=== PATIENT | female | born 1960 | race Caucasian/White ===

== ENCOUNTER → 2020-01-11 18:04 | Outpatient (CLI) | payer BC, SELFPAY ==
--- NOTE | ~2020-01-11 | MM_ITS ---
EXAMINATION: MM screening sabrina BI w linda HISTORY: Screening TECHNIQUE: Craniocaudal and mediolateral oblique 3-D tomosynthesis images were obtained and synthetic 2-D images were generated. CAD analysis was submitted and interpreted. COMPARISON: Comparison to multiple prior studies sequentially, with oldest reviewed study dated 09/21. BREAST PARENCHYMAL COMPOSITION: Breast composed of scattered areas of fibroglandular density. FINDINGS: There is no evidence of suspicious mass, calcification, or architectural distortion to sugg est malignancy in either breast. There has been no suspicious interval change. IMPRESSION: 1. No mammographic evidence of malignancy. 2. Recommend routine screening mammography in one year. BI-RADS Category 1: Negative Reviewed, dictated and finalized at location B. OS ANALYST
== END ==
PROVIDERS: Visit Provider Nurse Practitioner Family
DX: Z12.31 Encounter for screening mammogram for malignant neoplasm of breast (principal)
CPT/HCPCS: 77063; 77067

== ENCOUNTER 2020-12-04 00:40 | Day surgery (SDC) | payer OTHER, SELFPAY ==
[2020-11-15 14:09] VITALS: BMI 22.8
--- NOTE | 2020-12-03 10:34 | WPDANESEPPF ---
Anes - Initial Pre Proc Eval Procedure: Operation Date: 12/04/20 09:45 Proposed Procedures p Screening Colonoscopy - Andrea Alcala MD Date/Time: 12/03/20 10:34 Surgeon: Andrea Alcala MD Pre Op Diagnosis: neoplasm screening Patient Data Age: 60 Gender: F Height: 1.73 m Weight: 68.1 kg Allergies Allergy/AdvReac Type Severity Reaction Status Date / Time acetaminophen [From Vicodin] AdvReac Nausea and Verified 12/04/20 08:33 Vomiting hydrocodone [From Vicodin] AdvReac Nausea and Verified 12/04/20 08:33 Vomiting Home Medications Medication Instructions Recorded Confirmed Type lovastatin 20 mg PO DAILY 11/15/20 11/15/20 History Patient hx anesthesia problems: none Family hx anesthesia problems: none Results Review: All pre-operative results and documents have been reviewed as part of the pre-operative evaluation. [facility] Past Medical History Medical History (Updated 12/04/20 @ 09:10 by Tristen Rjaan DO) Hyperlipidemia Surgical History Surgical History (Updated 12/03/20 @ 10:34 by Tristen Rajan DO) History of appendectomy Social History Social History Smoking status: Former smoker Tobacco type: cigarettes Substance use type: does not use Living arrangements: with family Anes - Eval Final PreProcedure Day of Procedure 12/03/20 10:34 Patient weight: normal Heart: regular rate and rhythm Lungs: clear to auscultation and normal air movement Airway: Mallampati scale class II Neurological: alert and oriented Last oral intake: >/= 8 hours ASA classification: II Emergent: no Anesthetic plan: proceed Anesthesia type and monitoring: general GIVS and standard monitoring Results Review: All pre-operative results and documents have been reviewed as part of the pre-operative evaluation. Informed Consent: The patient's anesthetic plan and its attendant risks and benefits were discussed with the patient/family/POA. Questions were solicited and answers provided to the satisfaction of the patient/family/POA.
[2020-12-04 08:34] VITALS: BP 147/96; PULSE 76; RESP 20; TEMP 36.3; O2SAT 100; BMI 24.5
[2020-12-04] MEDS: LACTATED RINGERS 1,000 ML 150 ML IV CONT (08:48)
--- NOTE | 2020-12-04 09:03 | P.CONGI_ITS ---
Assessment and Plan Assessment and plan (1) Encounter for screening colonoscopy: Code(s): Z12.11 - Encounter for screening for malignant neoplasm of colon Status: Acute Assessment and Plan: Patient presents for neoplasia screening colonoscopy because of her age. Further recommendations will be given after endoscopy. GI Consult Note Consult date/time: 12/04/20 09:03 HPI: Arnel Hoyt is a 60 year old female Presents for screening colonoscopy. Patient's current weight appetite bowel movements are normal. Patient denies abdominal pain. She has had no bleeding. Family history is noncontributory. There are no first-degree relatives with colon cancer. Her adopted brother did have colon cancer. Patient reports her last colonoscopy was 10 years ago. Review of Systems Review of Systems: All systems reviewed & are unremarkable except as noted in HPI and below PMFSH Past Medical History Medical History (Updated 12/04/20 @ 09:04 by Andrea Alcala MD) Hyperlipidemia Hypertension Surgical History Surgical History (Updated 12/03/20 @ 10:34 by Tristen Rajan DO) History of appendectomy Social History Social History Smoking status: Former smoker Tobacco type: cigarettes Substance use type: does not use Living arrangements: with family Meds Home Medications and Allergies Home Medications Medication Instructions Recorded Confirmed Type lovastatin 20 mg PO DAILY 11/15/20 11/15/20 History Allergies Allergy/AdvReac Type Severity Reaction Status Date / Time acetaminophen [From Vicodin] AdvReac Nausea and Verified 12/04/20 08:33 Vomiting hydrocodone [From Vicodin] AdvReac Nausea and Verified 12/04/20 08:33 Vomiting Vital Signs Vital Signs - 24 hr 12/04/20 08:34 Temperature 97.3 F L Pulse Rate 76 Respiratory Rate 20 Blood Pressure 147/96 H Pulse Oximetry 100 Exam Narrative: Physical exam reveals patient to be alert. Vital signs stable. HEENT exam is unremarkable. Patient is anicteric. Lungs are clear to auscu ltation and percussion. Heart is without murmur or extra sounds. Abdominal exam bowel sounds are present soft nontender with no organomegaly. Digital external rectal exam is normal.
[2020-12-04 10:18] VITALS: BP 129/106; PULSE 77; RESP 24; O2SAT 100
[2020-12-04 10:28] VITALS: BP 139/96; PULSE 88; RESP 21; O2SAT 100
[2020-12-04 10:38] VITALS: BP 148/86; PULSE 74; RESP 19; O2SAT 100
== END 2020-12-04 10:51 | disposition home or self-care (01) ==
PROVIDERS: PCP Nurse Practitioner Family; Visit Provider Internal Medicine Gastroenterology
PROC: 0DJD8ZZ Inspection of Lower Intestinal Tract, Via Natural or Artificial Opening Endoscopic (ICD-10-PCS; CPT 45378; principal; 2020-12-04 09:45)
DX: Z12.11 Encounter for screening for malignant neoplasm of colon (principal); K64.8 Other hemorrhoids; E78.5 Hyperlipidemia, unspecified; I10 Essential (primary) hypertension; Z87.891 Personal history of nicotine dependence
CPT/HCPCS: 45378; J2704; J7120

== ENCOUNTER → 2021-04-03 11:15 | Outpatient (CLI) | payer OTHER, SELFPAY ==
--- NOTE | ~2021-04-03 | DEXA_ITS ---
Bone Density Report Name: MADHAV VALLE Age: 60 Sex: Female Ethnicity: White Date of : 1960 Indication: postmenopausal; screening for osteoporosis; Referring Provider: LORE WILDER Study: Bone densitometry was performed. Exam Date: April 03, 2021 Accession number: [id number] Bone Density: Region BMD T-score Z-score Classification AP Spine (L1, L4) 0.903 -1.2 0.2 Osteopenia Femoral Neck (Left) 0.727 -1.1 0.2 Osteopenia Total Hip (Left) 0.852 -0.7 0.2 Normal Femoral Neck (Right) 0.834 -0.1 1.2 Normal Total Hip (Right) 0.929 -0.1 0.9 Normal Total Hip Mean 0.891 -0.4 0.6 Normal World Health Organization criteria for BMD impression classify patients as: Normal (T-score at or above -1.0), Osteopenia (T-score between -1.0 and -2.5), or Osteoporosis (T-score at or below -2.5). 10-year Fracture Risk(1): Major Osteoporotic Fracture 7.4% Hip Fracture 0.5% Reported Risk Factors: [place] (), Neck BMD=0.727, BMI=26.4 (1) FRAX(R) Version 3.08. Fracture probability calculated for an untreated patient. Fracture probability may be lower if the patient has received treatment. Previous Exams: Region Exam Age BMD T-score BMD Change BMD Change Date g/cm2 vs Baseline vs Previous AP Spine(L1, L4) 04/03/2021 60 0.903 -1.2 -0.033* -0.033* 10/08/2017 57 0.936 -0.9 Total Hip(Left) 04/03/2021 60 0.852 -0.7 0.001 0.001 10/08/2017 57 0.851 -0.7 Total Hip(Right) 04/03/2021 60 0.929 -0.1 -0.018 -0.018 10/08/2017 57 0.948 0.0 *Denotes significance at 95% confidence level, LSC for AP Spine = 0.022 g/cm2, LSC for Total Hip = 0.027 g/cm2 Clinical Information Provided by Patient: Has used the following medications: Vitamin D, Calcium Patient maximum height was 67 Menopause Age: 52 Does not regularly consume dairy products Onset of menses at age 12 Number of children 0 Impression: The patient has low bone mass, based on the Total Spine T-score. The patient has an estimated ten-year risk of hip fracture of 0.5% and an estimated ten-year risk of major fracture of 7.4%, based on the WHO FRAX algorithm. The BMD for the AP Spine(L1, L4) decreased, changing by -0.033 since the last DXA exam. Discussion: BONE DENSITY IS LOW AT ONE OR MORE SKELETAL SITES. This patient's lowest T-score is low at one or more skeletal sites. It meets the World Health Organization's (WHO) crite
--- NOTE | ~2021-04-03 | MM_ITS ---
EXAMINATION: MM screening sabrina BI w linda HISTORY: Screening mammogram TECHNIQUE: Craniocaudal and mediolateral oblique 3-D tomosynthesis images were obtained and synthetic 2-D images were generated. CAD analysis was submitted and interpreted. COMPARISON: 01/28/2020, 12/15/2018, 10/08/2017 bilateral screening mammogram examinations BREAST PARENCHYMAL COMPOSITION: There are scattered areas of fibroglandular density. FINDINGS: There is a very suspicious asymmetric mass density measuring up to 11 mm in the posterior u pper outer left breast; diagnostic left mammogram and left breast ultrasound examination are recommen ded. No suspicious mass, architectural distortion, malignant calcification, skin thickening or retraction of either breast is noted otherwise. IMPRESSION: 1. At least 11 mm suspicious new mass in the posterior upper outer left breast 2. Diagnostic left mammogram and left breast ultrasound examination are recommended. BI-RADS Category 0: Incomplete: Needs additional imaging evaluation. Reviewed, dictated and finalized at location A. ATOLOGY TEACHER IMPRESSION: 1. At least 11 mm suspicious new mass in the posterior upper outer left breast 2. Diagnostic left mammogram and left breast ultrasound examination are recomme nded. BI-RADS Category 0: Incomplete: Needs additional imaging evaluation.
== END ==
PROVIDERS: PCP Nurse Practitioner Family; Visit Provider Obstetrics & Gynecology
DX: Z12.31 Encounter for screening mammogram for malignant neoplasm of breast (principal); Z78.0 Asymptomatic menopausal state; R92.8 Other abnormal and inconclusive findings on diagnostic imaging of breast; M85.89 Other specified disorders of bone density and structure, multiple sites
CPT/HCPCS: 77063; 77067; 77080

== ENCOUNTER → 2021-04-16 08:54 | Outpatient (CLI) | payer OTHER, SELFPAY ==
--- NOTE | ~2021-04-16 | MMUS_ITS ---
EXAMINATION: MM diagnostic sabrina LT w linda, US breast LT limited HISTORY: Follow-up left breast mass TECHNIQUE: Additional 3-D tomosynthesis images of the left breast were performed and synthetic 2-D im ages were generated. CAD analysis was submitted and interpreted. High resolution Limited left breast ultrasound was performed. COMPARISON: 2 views Comparison to multiple prior studies sequentially, with oldest reviewed study wilma ed 09/21/2013. BREAST PARENCHYMAL COMPOSITION: Breast composed of scattered areas of fibroglandular density FINDINGS: MAMMOGRAPHIC FINDINGS: There is an irregular shaped mass in the upper outer quadrant of the left breast, middle third. There are no suspicious calcifications. ULTRASOUND: Limited left breast ultrasound: At 2:00, 8.5-9 cm from the nipple there is one or 2 adjacent irregula r shaped hypoechoic masses with posterior shadowing, largest dominant mass measuring 1.5 cm. IMPRESSION: 1. Abnormal irregular shaped hypoechoic mass/es at the 2:00 position, 8.5-9 cm from the nipple. 2. Ultrasound-guided biopsy of dominant left breast mass recommended. BI-RADS category 4, suspicious findings. Reviewed, dictated and finalized at location A. E FEEDER IMPRESSION: 1. Abnormal irregular shaped hypoechoic mass/es at the 2:00 position, 8.5-9 cm from the nipple. 2. Ultrasound-guided biopsy of dominant left breast mass recommended. BI-RADS category 4, suspicious findings.
== END ==
PROVIDERS: Visit Provider Student in an Organized Health Care Education/Training Program
DX: R92.8 Other abnormal and inconclusive findings on diagnostic imaging of breast (principal)
CPT/HCPCS: 76642; 77061; 77065; G0279

== ENCOUNTER 2021-12-25 09:14 | Outpatient (CLI) | payer OTHER, SELFPAY ==
[2021-12-25 19:33] LABS: Basophils Absolute Auto 0.1 K/mm3 (0.0-0.1); Basophils Percent Auto 1.7 % (0.2-1.2); Eosinophils Absolute Auto 0.2 K/mm3 (0-0.3); Eosinophils Percent Auto 2.8 % (0-4.4); Hematocrit 41.7 % (37.0-47.0); Hemoglobin 13.7 g/dL (12.0-15.0); Immature Granulocyte Absolute 0.01 K/mm3 (0.00-0.031); Immature Granulocyte Percent A 0.2 % (0-0.5); Lymphocytes Absolute Auto 1.39 K/mm3 (0.9-3.2); Lymphocytes Percent Auto 21.8 % (18.3-44.2); Mean Corpuscular HGB Conc 32.9 g/dl (32-36); Mean Corpuscular Volume 100.5 fl (80-100); Mean Platelet Volume 10.6 fl (7.4-10.4); Monocytes Absolute Auto 0.8 K/mm3 (0.1-0.6); Monocytes Percent Auto 12.4 % (2.6-8.5); Neutrophils Absolute Auto 3.9 K/mm3 (1.3-6.7); Neutrophils Percent Auto 61.1 % (45.5-73.1); Platelet Count Result 226 k/mm3 (150-375); Red Blood Count 4.15 M/mm3 (4.2-5.4); Red Cell Distribution Width 13.3 % (11.5-14.5); White Blood Count 6.4 K/mm3 (4.5-10.0)
[2021-12-25 19:36] LABS: Alanine Aminotransferase 53 U/L (6-35); Albumin Level 4.5 g/dL (3.5-5.1); Alkaline Phosphatase 99 U/L (38-126); Anion Gap 13 mmol/L (8-16); Aspartate Amino Transferase 61 U/L (14-36); Bilirubin,Total 0.5 mg/dL (0.2-1.3); Blood Urea Nitrogen 15 mg/dL (7-17); CRP 0.8 mg/dL (<1.0); Calcium 9.5 mg/dL (8.4-10.2); Carbon Dioxide 29 mmol/L (22-30); Chloride 100 mmol/L (98-107); Cholesterol 219 mg/dL (0-200); Estimated Glomerular Filt Rate > 60; Glucose 95 mg/dL (65-110); HDL Direct 68 mg/dL; Potassium 4.5 mmol/L (3.4-5.0); Sodium 142 mmol/L (137-145); Triglycerides 132 mg/dL (<150)
[2021-12-25 19:45] LABS: LDL Cholesterol Direct 100 mg/dL
[2021-12-25 19:49] LABS: Rheumatoid Factor < 12.0 IU/ML (<12)
[2021-12-25 20:09] LABS: Vitamin D 25 Hydroxy 75.7 ng/mL
[2021-12-25 20:28] LABS: Erythrocyte Sedimentation Rate 19 mm/hr (0-20)
== END 2021-12-25 09:15 | disposition home or self-care (01) ==
LOC: ANHGOSHLAB 09:16
PROVIDERS: PCP Family Medicine; Visit Provider Nurse Practitioner Family
DX: E55.9 Vitamin D deficiency, unspecified (principal); M79.672 Pain in left foot; M79.671 Pain in right foot; E78.5 Hyperlipidemia, unspecified; I10 Essential (primary) hypertension
CPT/HCPCS: 36415; 80053; 80061; 82306; 85025; 85652; 86140; 86430

== ENCOUNTER 2022-09-17 14:15 | Outpatient (CLI) | payer OTHER, SELFPAY ==
[2022-09-17 15:51] LABS: Basophils Absolute Auto 0.1 K/mm3 (0.0-0.1); Basophils Percent Auto 1.3 % (0.2-1.2); Eosinophils Absolute Auto 0.2 K/mm3 (0-0.3); Eosinophils Percent Auto 2.3 % (0-4.4); Hemoglobin 13.4 g/dL (12.0-15.0); Immature Granulocyte Absolute 0.01 K/mm3 (0.00-0.031); Immature Granulocyte Percent A 0.1 % (0-0.5); Lymphocytes Absolute Auto 1.46 K/mm3 (0.9-3.2); Lymphocytes Percent Auto 21.3 % (18.3-44.2); Mean Corpuscular HGB Conc 33.5 g/dl (32-36); Mean Corpuscular Hemoglobin 32.5 pg (26-34); Mean Corpuscular Volume 97.1 fl (80-100); Mean Platelet Volume 10.5 fl (7.4-10.4); Monocytes Absolute Auto 0.7 K/mm3 (0.1-0.6); Monocytes Percent Auto 9.8 % (2.6-8.5); Neutrophils Absolute Auto 4.5 K/mm3 (1.3-6.7); Neutrophils Percent Auto 65.2 % (45.5-73.1); Platelet Count Result 173 k/mm3 (150-375); Red Blood Count 4.12 M/mm3 (4.2-5.4); Red Cell Distribution Width 12.4 % (11.5-14.5); White Blood Count 6.9 K/mm3 (4.5-10.0)
[2022-09-17 16:30] LABS: Erythrocyte Sedimentation Rate 14 mm/hr (0-20)
[2022-09-17 16:32] LABS: Alanine Aminotransferase 66 U/L (6-35); Albumin Level 4.5 g/dL (3.5-5.1); Alkaline Phosphatase 90 U/L (38-126); Anion Gap 6 mmol/L (8-16); Aspartate Amino Transferase 89 U/L (14-36); Bilirubin,Total 0.6 mg/dL (0.2-1.3); Blood Urea Nitrogen 17 mg/dL (7-17); Calcium 10.4 mg/dL (8.4-10.2); Carbon Dioxide 30 mmol/L (22-30); Chloride 100 mmol/L (98-107); Estimated Glomerular Filt Rate > 60; Glucose 98 mg/dL (65-110); Sodium 136 mmol/L (137-145)
== END 2022-09-17 14:16 | disposition home or self-care (01) ==
LOC: ANHGOSHLAB 14:16
PROVIDERS: PCP Family Medicine; Visit Provider Nurse Practitioner Family
DX: I10 Essential (primary) hypertension (principal); M79.89 Other specified soft tissue disorders
CPT/HCPCS: 36415; 80053; 85025; 85652

== ENCOUNTER 2022-09-22 09:44 | Outpatient (CLI) | payer OTHER, SELFPAY ==
[2022-09-22 19:45] LABS: Uric Acid 5.3 mg/dL (2.5-7.5)
== END 2022-09-22 09:45 | disposition home or self-care (01) ==
PROVIDERS: PCP Family Medicine; Visit Provider Nurse Practitioner Family
DX: M79.89 Other specified soft tissue disorders (principal)
CPT/HCPCS: 36415; 84550

== ENCOUNTER 2023-08-13 07:51 | Outpatient (CLI) | payer OTHER, SELFPAY ==
--- NOTE | ~2023-08-13 | DEXA_ITS ---
? Bone Density Report? Name:? MADHAV VALLE Patient ID:??? [id number] Age:? 63 Sex:? Female Ethnicity:? White Date of : 1960 Indication: postmenopausal; screening for osteoporosis; height loss; cancer; Referring Provider: EDDIE VASQUEZ Study: Bone densitometry was performed. Exam Date: August 13, 2023 Accession number: [id number] Bone Density: Region? BMD??? T-score? Z-score?? Classification AP Spine(L2, L3, L4)? 0.986?? -0.8?0.8? Normal Femoral Neck (Left)? 0.710?? -1.3? 0.2? Osteopenia Total Hip (Left)? 0.826?? -0.9? 0.2? Normal Femoral Neck (Right)? 0.808?? -0.4? 1.0? Normal Total Hip (Right)? 0.951??? 0.1? 1.2? Normal Femoral Neck Mean? 0.759?? -0.8? 0.6? Normal Total Hip Mean? 0.889?? -0.4? 0.7? Normal World Health Organization criteria for BMD impression classify patients as: Normal (T-score at or above -1.0), Osteopenia (T-score between -1.0 and -2.5), or Osteoporosis (T-score at or below -2.5). 10-year Fracture Risk(1): Major Osteoporotic Fracture? 8.0% Hip Fracture? 1.0% Reported Risk Factors: [place] (), Neck BMD=0.710, BMI=24.7, smoking (1) FRAX? Version 3.08. Fracture probability calculated for an untreated patient. Fracture probability may be lower if the patient has received treatment. Clinical Information Provided by Patient: Smokes Has used the following medications: Vitamin D, Calcium, multi Has the following medical conditions: Cancer Patient maximum height was 68 Menopause Age: 52 Does not regularly consume dairy products Onset of menses at age 12 Number of children 0 Impression: The patient has low bone mass, based on the Left Femoral Neck T- score. The patient has risk factors, including: smoking. Discussion: BONE DENSITY IS LOW AT ONE OR MORE SKELETAL SITES. This patient's lowest T-score is low at one or more skeletal sites.? It meets the World Health Organization's (WHO) criteria for ?low bone mass?? (T-score between -1.0 and -2.5).? The patient's 10-year risk of fracture as calculated by FRAX is less than the threshold where pharmacological therapy is recommended by the National Osteoporosis Foundation (NOF).? However, all treatment decisions require clinical judgment and consideration of individual patient factors, including patient preferences, comorbidities, previous drug use, risk factors not captured in the FRAX model (e.g., frailty, falls, vitamin D deficiency, increased bone turnover, interval significant decline in bone density) and possible under or overestimation of fracture risk by FRAX. The patient should follow a healthful lifestyle (good nutrition with
== END 2023-08-13 07:52 | disposition home or self-care (01) ==
LOC: CHSIMG 07:51
PROVIDERS: PCP Nurse Practitioner Family; Visit Provider Nurse Practitioner Family
DX: Z78.0 Asymptomatic menopausal state (principal); M85.88 Other specified disorders of bone density and structure, other site
CPT/HCPCS: 77080

== ENCOUNTER 2024-06-23 09:16 | Outpatient (CLI) | payer OTHER, SELFPAY ==
--- OUTSIDE RECORDS SUMMARY | 2024-06-23 09:29 | XMS_ITS | Encounter Summary ---
Author Organization [facility] Healthcare Address [address] [place] [address] Care Team Providers Care Phosphoric Acid Supervisor Name Role Phone Blaze Ndiaye MD Primary Care Provider [phone] Reason for Visit * Diagnostic Imaging (Routine) - Closed Specialty Diagnoses / Procedures Referred By Contac t Referred To Contact Procedures Breast Imaging Screening Outside Reference Mateusz Astudillo MD [address] [place] [address] Phone: tel: fax: Referral ID Status Reason Start Date Expiration Date Visits Re quested Visits Authorized [id number] Closed 05/23/2021 06/22/2022 1 1 Encounter Details Date Type Department Care Team (Late st Contact Info) Description 12/15/2018 Hospital Encounter [facility] [address] [place] [id number] Social History Tobacco Use Types Packs/Day Years Used Date Smoking Tobacco: Former Cigarettes 0.1 29.4 2 017 - 04/2023 Smokeless Tobacco: Never AUDIT-C Answer Date Recorded Q1: How often do you have a drink containing alc ohol? Monthly or less 11/19/2023 Q2: How many drinks containi ng alcohol do you have on a typical day when you are drinking? 3 or 4 11/19/2023 Q3: How often do you have si x or more drinks on one occasion? 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 Monthly or less 11/19/2023 8:59 AM Emilia Ballard, MIGUELINA Q2: How many drinks containing alcohol do you have on a typical day when you are drinking? 3 or 4 11/19/2023 8:59 AM Emilia Ballard, MIGUELINA Q3: How often do you have six or more drinks on one occasion? Never 11/19/2023 8:59 AM Emilia Ballard CMA documented as of this encounter Plan of Treatment Not on file documented as of this encounter Procedures Procedure Name Priority Date/Time Associated Diagnosis Comments BREAST IMAGING MG SCREENING OUTSIDE REFERENCE Routine 12/15/2018 12:00 AM LITHOPONE CHARGER documented in this encounter Results * Breast Imaging Screening Outside Reference (12/15/2018 12:00 AM LITHOPONE CHARGER) Impressions [facility] - 05/23/2021 5:01 PM CDT These images are for Reference purposes only and have not been reviewed by [facility] Radiology. There will be no report generated by a [facility] Radiologist. Narrative [facility] - 05/23/2021 5:01 PM CDT EXAMINATION: Images For Reference Purposes Only us Mateusz Astudillo MD IMG MAMMO PROCEDURES Fi nal Result [facility] documented in this encounter Visit Diagnoses Not on filedocumented in this encounter Care Teams Phosphoric Acid Supervisor Relationship Specialty Start Date End Date Blaze Ndiaye MD [facility] [facility] [address] [place] [address] PCP - General 03/14/10 05/25/21 documented as of this encounter
--- OUTSIDE RECORDS SUMMARY | 2024-06-23 09:29 | XMS_ITS | Encounter Summary ---
Author Organization [facility] Healthcare Address [address] [place] [address] Care Team Providers Care Brake Lining Finisher Name Role Phone Blaze Ndiaye MD Primary Care Provider [phone] Reason for Visit * Diagnostic Imaging (Routine) - Closed Specialty Diagnoses / Procedures Referred By Contac t Referred To Contact Procedures Breast Imaging Screening Outside Reference Mateusz Astudillo MD [address] [place] [address] Phone: tel: fax: Referral ID Status Reason Start Date Expiration Date Visits Re quested Visits Authorized [id number] Closed 05/23/2021 06/22/2022 1 1 Encounter Details Date Type Department Care Team (Late st Contact Info) Description 04/27/2016 Hospital Encounter [facility] Radiology [facility] [address] [place] [id number] Social History Tobacco Use Types Packs/Day Years [...] on file Legal Sex 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 Monthly or less 11/19/2023 8:59 AM Emilia Ballard, MIGUELINA Q2: How many drinks containing alcohol do you have on a typical day when you are drinking? 3 or 4 11/19/2023 8:59 AM CDT Emilia Mae, MIGUELINA Q3: How often do you have six or more drinks on one occasion? Never 11/19/2023 8:59 AM ALESIAT Emilia Mae CMA documented as of this encounter Plan of Treatment Not on file documented as of this encounter Procedures Procedure Name Priority Date/Time Associated Diagnosis Comments BREAST IMAGING MG SCREENING OUTSIDE REFERENCE Routine 04/27/2016 12:00 AM CDT documented in this encounter Results * Breast Imaging Screening Outside Reference (04/27/2016 12:00 AM CDT) Impressions [facility] - 05/23/2021 5:02 PM CDT These images are for Reference purposes only and have not been reviewed by [facility] Radiology. There will be no report generated by a [facility] Radiologist. Narrative [facility] - 05/23/2021 5:02 PM CDT EXAMINATION: Images For Reference Purposes Only us Mateusz Astudillo MD IMG MAMMO PROCEDURES Fi nal Result [facility] documented in this encounter Visit Diagnoses Not on filedocumented in this encounter Care Teams Brake Lining Finisher Relationship Specialty Start Date End Date Blaze Ndiaye MD [facility] [address] [place] [address] PCP - General 03/14/10 05/25/21 documented as of this encounter
--- OUTSIDE RECORDS SUMMARY | 2024-06-23 09:29 | XMS_ITS | Clinical Summary ---
Author Organization [facility] Address [facility] [place] [address] Care Team Providers Care Talent Acquisition Director Name Role Phone Devan Newman MD Unavailable [phone] Norris Landry DO Unavailable [phone] Mateusz Astudillo MD Unavailable [phone] Becky Briscoe MD Unavailable Unknown, Notinfile Primary Care Provider Unavail able Allergies Active Allergy Reactions Criticality Noted Date Comments Venom-Honey Bee Anaphylaxis High 08/25/2021 Hydrocodone-Acetaminophen Vomiting Low 05/21/2015 Venom-Wasp Anaphylaxis High 08/25/2021 Medications lisinopriL (PRINIVIL,ZESTR IL) 10 mg tabletIndicatio ns:hypertension Take 1 tablet (10 mg total) by mouth every morning 03/03/2021 Active lovastatin (MEVACOR) 20 mg tablet Take 1 tablet (20 mg total) by mouth every morning 03/08/2021 Active calcium carbonate-vitam in D3 1,250 mg (500 mg elemental)-125 unit per tablet Take 1 tablet by mouth every morning Active multivitamin capsule Take 1 capsule by mouth every morning Active cholecalciferol (VITAMIN D-3) 5,000 unit tablet 0.4 tablets (2,000 Units total) Active letrozole (FEMARA) 2.5 mg tablet Take 1 tablet (2.5 mg total) by mouth every other day 45 tablet 1 11/19/2023 Active Active Problems Problem Noted Date Diagnosed Date Encounter for follow-up surveillance of breast c ancer 10/15/2021 Malignant neoplasm of upper- outer quadrant of left breast in female, estrogen receptor positive 06/20/2021 Cancer Staging:Pathologic stage from 08/23/2021:Stage IA(pT2, pN0(sn), cM0, G1, ER+, [place]+, HER2-) - Signed by Thea Huntley MD on 08/23/2021 Benign hypertension 06/24/2013 Overview (05/14/2016): BENIGN HYPERTENSION Encounters Date Type Department Care Team Description 05/19/2024 Telephone [facility] Oncology [facility] [address] [place] [address] Melissa Zarate RN 04/26/2024 Telephone [facility] Surgery [address] [place] [address] 8 [place] [address] Sabina Tam NP 04/25/2024 10:08 AM CDT - 04/25/2024 11:59 PM CDT Hospital Encounter [facility] - Breast Imaging [address] [place] [address] Floor 8 [place] [address] History of breast cancer Discharge Disposition: Discharge to home or self care 04/25/2024 9:45 AM CDT Office Visit [facility] Surgery [address] [place] [address] Floor 8 [place] [address] Sabina aTm NP Malignant neoplasm of upper-outer quadrant of left breast in female, estrogen receptor positive (HCC) (Primary Dx); History of breast cancer; History of partial mastectomy of left breast; Encounter for screening mammogram for malignant neoplasm of breast from Last 3 Months Immunizations Immunization Administration Dates Next Due Influenza, Quadrivalent, Spl it, Preservative Free, Intramuscular 01/07/2021 Surgical History Surgery Date Site/Laterality Comments TONSILLECTOMY Tonsillectomy KNEE ARTHROSCOPY 12/24/2016 Bilateral Arthroscopy knee APPENDECTOMY Appendectomy OTHER SURGICAL HISTORY 2004 foot bunionectomy BREAST BIOPSY 05/28/2021 Left FOOT SURGERY Bilateral bi Medical History Medical History Date Comments Hx Other Medical 2010 s/p L foot surg ysabel (bone spur) Hypertension Osteoarthritis Hyperlipidemia PONV (postoperative nausea and vomiting) Managed with IV antiemetics Breast cancer (HCC) Family History Medical History Relation Name Comments Bladder Cancer Brother Coronary artery disease Father Nisha nary artery disease; Hypertension Father Hypertension; Stroke Father Stroke; Lymphoma Maternal Grandmother Hypertension Mother Hypertension; Relation Name Status Comments Brother Father Maternal Grandmother Mother Social History Tobacco Use Types Packs/Day Years Used Date Smoking Tobacco: Former Cigarettes 0.1 29.4 2 017 - 04/2023 Smokeless Tobacco: Never Tobacco Cessation:Counseling Given: Not Answered AUDIT-C Answer Date Recorded Q1: How often [...] on file 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 Gender Identity Not on file Sexual Orientation Not on file Occupation Industry Job Start Date Job End Date Retired Not on file Not on file Not on file Obstetrics History Last Filed Vital Signs Vital Sign Reading Time Taken Comments Blood Pressure 142/88 11/19/2023 9:01 AM CDT Pulse 87 11/19/2023 9:01 AM CDT Temperature 36.7 C (98 F) 11/19/2023 9:01 AM CDT Respiratory Rate 18 11/19/2023 9:01 AM CDT Oxygen Saturation 98% 11/19/2023 9:01 AM CDT Inhaled Oxygen Concentration - - Weight 69.4 kg (153 lb) 04/25/2024 9:57 AM CDT Height 172.5 cm (5' 7.91 ) 04/25/2024 9:57 AM CD T Body Mass Index 23.32 04/25/2024 9:57 AM CDT Plan of Treatment Health Maintenance Due Date Last Done Comments Cervical Cancer Screening 1960 Colon Cancer Screening-Colonoscopy 1960 Depression Screening 1960 Hepatitis C Screening 1960 DTaP/Tdap/Td Vaccine (1 - Tdap) 08/09/1971 Hepatitis B Screening 1978 Regular Well Visit/Exam 18-64 1978 Pneumococcal vaccine <65 (1 of 2 - PCV) 08/09/1979 Zoster Vaccine (1 of 2) 08/09/1979 Covid-19 Vaccine (3 - Pfizer risk series) 06/16/2020 05/19/2020, 04/23/2020 Influenza Vaccine (Season Ended) 2024 01/08/20 21 Breast Cancer Screening-Mammogram 04/25/2025 04/25/2024, 04/23/2023, 04/16/2022 Medical Devices Implanted Type Area Electronics Hardware Design Engineer Device Identifier Shelf Expiration Date Model / Serial / Lot Bard Peripheral Vascular Ultraclip Bard 17ga 10cm 2 Trigger Permanent Ultrasound [id number] - [id number] Implanted:Qty: 1 on 05/28/2021 at [facility] Left: Breast Bard Peripheral Vascular [id number] / / Bard Peripheral Vascular Ghiatas 20ga 15cm 5cm Beaded Needle Breast Wire Localization [id number] - [id number] Implanted:Qty: 1 on 07/25/2021 at [facility] Bard Peripheral Vascular [id number] / / Bard Peripheral Vascular Ghiatas 20ga 15cm 5cm Beaded Needle Breast Wire Localization [id number] - [id number] Implanted:Qty: 1 on 07/25/2021 at [facility] Bard Peripheral Vascular [id number] / / Procedures Procedure Name Priority Date/Time Associated Diagnosis Comments DIAGNOSTIC MAMMOGRAM BILATERAL W EDI Schedule Routine, Read Routine (OP Routine) 04/25/2024 10:32 AM CDT History of breast cancer from Last 3 Months Results * Diagnostic Mammogram Bilateral W Edi (04/25/2024 10:32 AM CDT) Anatomical Region Laterality Modality Breast Bilateral Mammography 04/25/2024 10:4 9 AM CDT Impressions 04/25/2024 10:55 AM CDT 1. Stable benign LEFT breast conservation therapy changes, without suspicious mammographic abnormality. 2. No mammographic evidence of malignancy within EITHER breast. OVERALL FINAL ASSESSMENT: BI-RADS Category 2: Benign. RECOMMENDATION: Annual screening mammography is recommended. Dr. Donald Welch discussed the above findings and recommendations with the patient, who expressed her understanding of the management plan. Dictated by: Donald Welch MD The radiology attending physician has personally reviewed this study, and had reviewed and/or edited this written report and agrees with it. Electronically signed by: Liliane Erwin MD Narrative 04/25/2024 10:55 AM CDT EXAMINATION: BILATERAL DIGITAL DIAGNOSTIC MAMMOGRAM INCLUDING CAD AND BILATERAL DIGITAL BREAST TOMOSYNTHESIS HISTORY: 63-year-old female with a history of left invasive lobular carcinoma in 2021, status post left breast conservation therapy. COMPARISON: 04/23/2023, 04/16/2022, 07/25/2021, 05/28/2021 TECHNIQUE: Full field digital mammographic views of BOTH breasts were performed, including computer aided detection (CAD) and BILATERAL digital breast tomosynthesis (DBT). BREAST PARENCHYMAL COMPOSITION: There are scattered areas of fibroglandular density. MAMMOGRAM FINDINGS: Again seen are LEFT breast conservation therapy with presumed postoperative seroma, which has decreased in size. There is no new suspicious abnormality within the LEFT breast. There is no mass, calcification or architectural distortion suggestive of malignancy in the RIGHT breast. Procedure Note Liliane Erwin MD - 04/25/2024 EXAMINATION: BILATERAL DIGITAL DIAGNOSTIC MAMMOGRAM INCLUDING CAD AND BILATERAL DIGITAL BREAST TOMOSYNTHESIS HISTORY: 63-year-old female with a history of left invasive lobular carcinoma in 2021, status post left breast conservation therapy. COMPARISON: 04/23/2023, 04/16/2022, 07/25/2021, 05/28/2021 TECHNIQUE: Full field digital mammographic views of BOTH breasts were performed, including computer aided detection (CAD) and BILATERAL digital breast tomosynthesis (DBT). BREAST PARENCHYMAL COMPOSITION: There are scattered areas of fibroglandular density. MAMMOGRAM FINDINGS: Again seen are LEFT breast conservation therapy with presumed postoperative seroma, which has decreased in size. There is no new suspicious abnormality within the LEFT breast. There is no mass, calcification or architectural distortion suggestive of malignancy in the RIGHT breast. IMPRESSION: 1. Stable benign LEFT breast conservation therapy changes, without suspicious mammographic abnormality. 2. No mammographic evidence of malignancy within EITHER breast. OVERALL FINAL ASSESSMENT: BI-RADS Category 2: Benign. RECOMMENDATION: Annual screening mammography is recommended. Dr. Donald Welch discussed the above findings and recommendations with the patient, who expressed her understanding of the management plan. Dictated by: Donald Welch MD The radiology attending physician has personally reviewed this study, and had reviewed and/or edited this written report and agrees with it. Electronically signed by: Liliane Erwin MD Sabina Tam REFINERY OPERATOR HELPER CRACKING UNIT IMG MAMMO PROCEDURES Final Result from Last 3 Months Insurance [facility] Member Subscriber Plan / Payer (Ef fective 2020-Present) Name:Arnel Hoyt Member ID:[id number] Relation to Subscriber:Self Name:Arnel Hoyt Subscriber ID:[id number] Payer ID:[id number] (NAIC) Type:[facility] HMO/PPO Address: [place] [id number] R [facility] Care Teams Talent Acquisition Director Relationship Specialty Start Date End Date Unknown, Notinfile PCP - General 04/12/24 Devan Newman MD [address] [facility] [address] [place] [address] Referring Physician Obstetrics and Gynecology 05/26/21 Norris Landry DO [address] [place] [address] MEDICAL ONCOLOGY, [address] [address] Medical Oncologist/Cyber Intel Planner Hematology and Oncology 08/13/21 Mateusz Astudillo MD [address] [place] [address] MEDICAL ONCOLOGY, [address] [id number] Referring Physician Surgical Oncology 10/06/21 Becky Briscoe MD [address] [place] [address] MEDICAL ONCOLOGY, [facility] [address] [place], [place] [address] Radiation Oncologist Radiation Oncology 10/06/21
--- OUTSIDE RECORDS SUMMARY | 2024-06-23 09:29 | XMS_ITS | Referral Summary ---
Author Organization [facility] Address [address] [place] [address] Care Team Providers Care Photogrammetric Tech Name Role Phone Devan Newman MD Unavailable [phone] Norris Landry DO Unavailable [phone] Mateusz Astudillo MD Unavailable [phone] Becky Briscoe MD Unavailable Unknown, Notinfile Primary Care Provider Unavail able Encounters Date Type Department Care Team Description 05/19/2024 Telephone [facility] Oncology [address] [place] [address] [address] [place] [address] Melissa Zarate RN 04/26/2024 Telephone [facility] Surgery [address] [place] [address] Sabina Tam NP 04/25/2024 10:08 AM CDT - 04/25/2024 11:59 PM CDT Hospital Encounter [facility] [place] - Breast Imaging [address] [place] [address] 8 [place] [address] History of breast cancer Discharge Disposition: Discharge to home or self care 04/25/2024 9:45 AM CDT Office Visit [facility] Surgery [address] [place] [address] 8 [place] [address] Sabina Tam NP Malignant neoplasm of upper-outer quadrant of left breast in female, estrogen receptor positive (HCC) (Primary Dx); History of breast cancer; History of partial mastectomy of left breast; Encounter for screening mammogram for malignant neoplasm of breast from Last 3 Months Allergies Active Allergy Reactions Criticality Noted Date [...] from 08/23/2021:Stage IA(pT2, pN0(sn), cM0, G1, ER+, [place]+, HER2-) - Signed by Thea Huntley MD on 08/23/2021 Benign hypertension 06/24/2013 Overview (05/14/2016): BENIGN HYPERTENSION Immunizations Immunization Administration Dates Next Due Influenza, Quadrivalent, Spl it, Preservative Free, Intramuscular 01/07/2021 Social History Tobacco Use Types Packs/Day Years [...] on file 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 Gender Identity Not on file Sexual Orientation Not on file Occupation Industry Job Start Date Job End Date Retired Not on file Not on file Not on file Last Filed Vital Signs Vital Sign Reading [...] 04/25/2024 9:57 AM CDT Plan of Treatment Not on file Medical Devices Implanted Type Area Health Safety Specialist Device Identifier Shelf Expiration Date Model / Serial / Lot Bard Peripheral Vascular Ultraclip Bard 17ga 10cm 2 Trigger Permanent Ultrasound [id number] - [id number] Implanted:Qty: 1 on 05/28/2021 at [facility] Left: Breast [employer] Peripheral Vascular [id number] / / Bard Peripheral Vascular Ghiatas 20ga 15cm 5cm Beaded Needle Breast Wire Localization [id number] - [id number] Implanted:Qty: 1 on 07/25/2021 at [facility] [employer] Peripheral Vascular [id number] / / Bard Peripheral Vascular Ghiatas 20ga 15cm 5cm Beaded Needle Breast Wire Localization [id number] - [id number] Implanted:Qty: 1 on 07/25/2021 at [facility] [employer] Peripheral Vascular [id number] / / Procedures Procedure Name Priority Date/Time [...] signed by: Liliane Erwin MD Sabina Tam NP IMG MAMMO PROCEDURES Final Result from Last 3 Months Insurance [facility] Care Teams Photogrammetric Tech Relationship Specialty Start Date End Date Unknown, Notinfile PCP - General 04/12/24 Devan Newman MD [address] [facility] [address] [place] [address] Referring Physician Obstetrics and Gynecology 05/26/21 Norris Landry DO [facility] MEDICAL ONCOLOGY, [address] [id number] Medical Oncologist/Correctional Nurse Hematology and Oncology 08/13/21 Mateusz Astudillo MD [address] [place] [address] MEDICAL ONCOLOGY, [address] [phone] Referring Physician Surgical Oncology 10/06/21 Becky Briscoe MD [address] [place] [address] MEDICAL ONCOLOGY, [place] [address] Radiation Oncologist Radiation Oncology 10/06/21
--- OUTSIDE RECORDS SUMMARY | 2024-06-23 09:29 | XMS_ITS | Encounter Summary ---
Author Organization [facility] Healthcare Address [address] [place] [address] Care Team Providers Care Reroller Hand Name Role Phone Blaze Ndiaye MD Primary Care Provider [phone] Reason for Visit * Diagnostic Imaging (Routine) - Closed Specialty Diagnoses / Procedures Referred By Contac t Referred To Contact Procedures Breast Imaging Screening Outside Reference Mateusz Astudillo MD [address] [place] [address] Phone: tel: fax: Referral ID Status Reason Start Date Expiration Date Visits Re quested Visits Authorized [id number] Closed 05/23/2021 06/22/2022 1 1 Encounter Details Date Type Department Care Team (Late st Contact Info) Description 10/08/2017 Hospital Encounter [facility] Radiology [facility] [address] [place] [address] Social History Tobacco Use Types Packs/Day Years [...] on file 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 Gender Identity Not on file Sexual Orientation Not on file Occupation Industry Job Start Date Job End Date Retired Not on file Not on file Not on file documented as of this encounter Functional Status * Audit-C Score Answer Date of Assessment Author 2 11/19/2023 8:59 AM CDT oMe Mae, MIGUELINA * Question Answer Date of [...] BREAST IMAGING MG SCREENING OUTSIDE REFERENCE Routine 10/08/2017 12:00 AM CDT documented in this encounter Results * Breast Imaging Screening Outside Reference (10/08/2017 12:00 AM CDT) Impressions [facility]_MAMMO[facility] - 05/23/2021 5:01 PM CDT These images are for Reference purposes only and have not been reviewed by [facility] Radiology. There will be no report generated by a [facility] Radiologist. Narrative [facility]_MAMMO[facility] - 05/23/2021 5:01 PM CDT EXAMINATION: Images For Reference Purposes Only us Mateusz Astudillo MD IMG MAMMO PROCEDURES Fi nal Result [facility] documented in this encounter Visit Diagnoses Not on filedocumented in this encounter Care Teams Reroller Hand Relationship Specialty Start Date End Date Blaze Ndiaye MD [address] [place] [address] [place] [address] PCP - General 03/14/10 05/25/21 documented as of this encounter
--- OUTSIDE RECORDS SUMMARY | 2024-06-23 09:29 | XMS_ITS | Clinical Summary ---
Author Organization [facility] [employer] Address [address] [facility] [place] [address] Care Team Providers Care Front Sight Attacher Name Role Phone Mateusz Freedman MD Unavailable [phone] Elif Lyon Primary Care Provider [phone] Source Comments [facility] [employer],non-owned Affiliates and Associated Physician Practices is amultiple site organization consisting of ambulatory clinics and hospital sitesin [place], [place], [place] and [place]. This disclosure is being madepursuant to the Care Everywhere program and may not contain all information available regarding this patient. Last updated 17.[facility] [employer] Allergies Active Allergy Reactions Criticality Noted Date Comments Bee Venom Anaphylaxis High 08/25/2021 Hydrocodone-Acetaminophen Vomiting Low 05/21/2015 Hydrocodone-Acetaminophen 05/21/2015 Wasp Venom Protein Anaphylaxis High 08/25/2021 Medications * Be aware that medications may not be up to date on this document. Alwaysverify current medications with the patient. lisinopril-hydrochloro thiazide (PRINZIDE; ZESTORETIC) 10-12.5 MG tabletIndications:Prim jil osteoarthritis of right knee Take 1 (one) tablet by mouth once daily Active Calcium Carbonate-Vitamin D (CALCIUM + D PO)Indications:Primary osteoarthritis of right knee Active Multiple Vitamins-Minerals (MULTIVITAMIN & MINERAL PO)Indications:Primary osteoarthritis of right knee Active diclofenac sodium EC (VOLTAREN) 75 MG tablet TAKE 1 TABLET BY MOUTH TWICE DAILY 180 Tab 3 016 Active Additional Information Patient not taking.Reported on 10/28/2022 lovastatin (MEVACOR) 10 MG tablet Take 1 (one) tablet by mouth once daily 2 017 Active EPINEPHrine (EPIPEN) 0.3 MG/0.3ML auto-injector pen 017 Active docusate sodium (COLACE) 100 MG capsule Take 1 capsule by mouth 2 times daily as needed for Constipation 60 capsule 017 Active Additional Information Patient not taking.Reported on 01/04/2017 ondansetron, disintegrating, (ZOFRAN ODT) 4 MG tablet Take 1 tablet by mouth every 6 hours as needed for Nausea/Vomiting Allow tablet to dissolve on the tongue 28 tablet 017 Active Additional Information Patient not taking.Reported on 10/28/2022 traMADol (ULTRAM) 50 MG tablet Take 1 tablet by mouth every 4 hours as needed for Pain 60 tablet 017 Active Additional Information Patient not taking.Reported on 01/04/2017 meloxicam (MOBIC) 15 MG tabletIndications:Foot pain, bilateral TAKE 1 TABLET BY MOUTH EVERY DAY 90 tablet 1 020 Active Additional Information Patient not taking.Reported on 10/28/2022 letrozole (Femara) 2.5 MG tablet Take 1 (one) tablet by mouth once daily 023 Active oxyCODONE-acetaminophe n (Percocet) 5-325 MG tabletIndications:Arth ritis of great toe at metatarsophalangeal joint Take 1 (one) tablet to 2 (two) tablets by mouth every 6 hours as needed for Pain 30 tablet 023 Active lovastatin (Mevacor) 20 MG tablet 023 Active lisinopril (Prinivil; Zestril) 10 MG tablet Take 1 (one) tablet by mouth once daily 024 Active letrozole (Femara) 2.5 MG tablet Take 1 (one) tablet by mouth once daily 024 Active diclofenac sodium (Voltaren) 1 % gel Apply 2 (two) g to affected area 4 times daily 350 g 1 024 Active Active Problems Problem Noted Date Diagnosed Date Tear of medial meniscus of left knee, current Social History Tobacco Use Types Packs/Day Years Used Date Smoking Tobacco: Every Day Cigarettes Smokeless Tobacco: Never Tobacco Cessation:Ready to Q uit: Not Asked; Counseling Given: Not Answered Comments:1pk/month Alcohol Use Standard Drinks/Week Comments Yes 10 (1 standard drink = 0.6 oz pu re alcohol) week Comments Unknown Sex and Gender Information Value Date Recorded Sex Assigned at Not on file 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 Gender Identity Not on file Sexual Orientation Not on file Last Filed Vital Signs Vital Sign Reading Time Taken Comments Blood Pressure 158/107 11/24/2022 3:35 PM CDT Pulse 73 11/24/2022 3:35 PM CDT Temperature 36.3 C (97.3 F) 11/24/2022 2:43 PM CDT Respiratory Rate 15 11/24/2022 3:35 PM CDT Oxygen Saturation 97% 11/24/2022 3:35 PM CDT Inhaled Oxygen Concentration - - Weight 69.9 kg (154 lb) 11/03/2023 10:50 AM CDT Height 172.7 cm (5' 8 ) 11/18/2022 1:11 PM CDT Body Mass Index 23.42 11/18/2022 1:11 PM CDT Plan of Treatment Health Maintenance Due Date Last Done Comments COLOGUARD (AGES 45-75) - COL ON CA SCREENING 1960 COLON MONITORING 1960 COLONOSCOPY - COLON CA SCREENING 1960 CT COLONOGRAPHY - COLON CA SCREENING 1960 Colorectal Cancer Screening 1960 FIT - COLON CA SCREENING 1960 FLEX SIG - COLON CA SCREENING 1960 PAP SMEAR 1960 HIV SCREENING 08/09/1975 HEPATITIS C SCREENING 08/04/1978 DTAP/TDAP/TD VACCINES (1 - Tdap) 08/09/1979 PNEUMOCOCCAL VACCINE 50+ (1 of 2 - PCV) 08/09/1979 ZOSTER VACCINE (1 of 2) 2010 COVID-19 VACCINE ( - 2023-2 5 season) 2023 DEPRESSION SCREENING 02/09/2024 INFLUENZA VACCINE (Season Ended) 2024 01/07/2021 MAMMOGRAM 04/22/2025 04/23/2023, 04/16/2022 Respiratory Syncytial Virus (RSV) Vaccine Pt: or over 60 yrs (1 - 1-dose 75+ series) 08/09/2035 HEPATITIS B VACCINE Aged Out No longe r eligible based on patient's age to complete this topic HIB VACCINE Aged Out No longer eligi ble based on patient's age to complete this topic HPV VACCINE Aged Out No longer eligi ble based on patient's age to complete this topic MENINGOCOCCAL (Group B) VACCINE SHARED DECISION-MAKING Aged Out No longer eligible based on patient's age to complete this topic MENINGOCOCCAL GROUPS A/C/Y/W VACCINE Aged Out No longer eligible b ased on patient's age to complete this topic Medical Devices Implanted Type Area Senior Product Marketing Manager Device Identifier Shelf Expiration Date Model / Serial / Lot Screw 2.4mm 16mm T7 Slf-Tap Ft Lj Vlp Implanted:Qty: 1 on 11/24/2022 by Chris Mcallister MD at [facility] Right: [employer] [id number] / / Screw 2.4mm 18mm T7 Slf-Tap Ft Lj Vlp Implanted:Qty: 1 on 11/24/2022 by Chris Mcallister MD at [facility] Right: [employer] [id number] / / Plate 6 Hl 1.25mm Str Vlp Mini-Mod Ti Implanted:Qty: 1 on 11/24/2022 by Chris Mcallister MD at [facility] Right: [employer] [id number] / / Screw 2.4mm 10mm T7 Slf-Tap Ft Lj Vlp Implanted:Qty: 1 on 11/24/2022 by Chris Mcallister MD at [facility] Right: [employer] [id number] / / Screw 2.4mm 14mm T7 Slf-Tap Ft Lj Vlp Implanted:Qty: 1 on 11/24/2022 by Chris Mcallister MD at [facility] Right: [employer] [id number] / / Explanted Type Area Senior Product Marketing Manager Device Identifier Shelf Expiration Date Model / Serial / Lot Wire K 1mm 150mm Troc Pnt 1 End Ss Orth Explanted:Qty: 2 on 11/24/2022 by Chris Mcallister MD at [facility] Right: [employer] [id number] / / Description:[employer] To[employer] Insurance [facility] [place] [id number] Care Teams Front Sight Attacher Relationship Specialty Start Date End Date Elif Lyon [facility] [address] [place], [place] [id number] PCP - General 11/02/22 [place] [id number] [place] [address] Orthopedic Surgery 05/21/15
--- OUTSIDE RECORDS SUMMARY | 2024-06-23 09:29 | XMS_ITS ---
Author Organization [facility] Address [address] [place] [id number] Care Team Providers Care Media Relations Director Name Role Phone Devan Newman MD Unavailable [phone] Norris Landry DO Unavailable [phone] Mateusz Astudillo MD Unavailable [phone] Becky Briscoe MD Unavailable Unknown, Notinfile Primary Care Provider Unavail able Active Problems Problem Noted Date Diagnosed Date Encounter for follow-up surveillance of breast c ancer 10/15/2021 Malignant neoplasm of upper- outer quadrant of left breast in female, estrogen receptor positive 06/20/2021 Cancer Staging:Pathologic stage from 08/23/2021:Stage IA(pT2, pN0(sn), cM0, G1, ER+, WV+, HER2-) - Signed by Thea Huntley MD on 08/23/2021 Benign hypertension 06/24/2013 Overview (05/14/2016): BENIGN HYPERTENSION Current Treatment and Therapy Plans No current plan information found. Past Treatment and Therapy Plans No past plan information found. Radiation Treatments * Course C1 L BREAST 202109/12/2021 - 10/03/2021 Treatment Period Energy Fraction Dose Fractions Total Dose Plans Planned L BREAST 09/12/2021 - 10/03/2021 266 16 / 4,256 Reference Points Delivered BAUM DPV 09/12/2021 - 10/03/2021 4,256
--- OUTSIDE RECORDS SUMMARY | 2024-06-23 09:29 | XMS_ITS | Encounter Summary ---
Author Organization [facility] Address [address] [place] [address] Care Team Providers Care Rag Washer Name Role Phone Blaze Ndiaye MD Primary Care Provider Reason for Visit * Diagnostic Imaging (Routine) - Closed Specialty Diagnoses / Procedures Referred By Contac t Referred To Contact Procedures Breast Imaging Screening Outside Reference Mateusz Astudillo MD [address] [place] [id number] Phone: tel: fax: Referral ID Status Reason Start Date Expiration Date Visits Re quested Visits Authorized [id number] Closed 05/23/2021 06/22/2022 1 1 Encounter Details Date Type Department Care Team (Late st Contact Info) Description 01/11/2020 Hospital Encounter [facility] [address] [place] [id number] Social History Tobacco Use Types Packs/Day Years [...] on file Legal 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 Monthly or less 11/19/2023 8:59 AM Emilia Ballard, MIGUELINA Q2: How many drinks containing alcohol do you have on a typical day when you are drinking? 3 or 4 11/19/2023 8:59 AM ALESIAT Emilia Mae, STAKING ENGINEER Q3: How often do you have six or more drinks on one occasion? Never 11/19/2023 8:59 AM Emilia Ballard, MIGUELINA documented as of this encounter Plan of Treatment Not on file documented as of this encounter Procedures Procedure Name Priority Date/Time Associated Diagnosis Comments BREAST IMAGING MG SCREENING OUTSIDE REFERENCE Routine 01/11/2020 12:00 AM PUBLICITY AGENT documented in this encounter Results * Breast Imaging Screening Outside Reference (01/11/2020 12:00 AM PUBLICITY AGENT) Impressions [facility] - 05/23/2021 5:01 PM CDT These images are for Reference purposes only and have not been reviewed by [facility] Radiology. There will be no report generated by a [facility] Radiologist. Narrative [facility]_M[facility]MO[facility] - 05/23/2021 5:01 PM CDT EXAMINATION: Images For Reference Purposes Only us Mateusz Astudillo MD IMG MAMMO PROCEDURES Fi nal Result [facility] documented in this encounter Visit Diagnoses Not on filedocumented in this encounter Care Teams Rag Washer Relationship Specialty Start Date End Date Blaze Ndiaye MD [facility] [facility] [address] [place] [address] PCP - General 03/14/10 05/25/21 documented as of this encounter
[2024-06-23 12:24] LABS: Basophils Absolute Auto 0.1 K/mm3 (0.0-0.1); Basophils Percent Auto 2.2 % (0.2-1.2); Eosinophils Absolute Auto 0.3 K/mm3 (0-0.3); Eosinophils Percent Auto 5.8 % (0-4.4); Hematocrit 42.3 % (37.0-47.0); Immature Granulocyte Absolute 0.01 K/mm3 (0.00-0.031); Immature Granulocyte Percent A 0.2 % (0-0.5); Lymphocytes Absolute Auto 1.87 K/mm3 (0.9-3.2); Lymphocytes Percent Auto 41.4 % (18.3-44.2); Mean Corpuscular HGB Conc 33.1 g/dl (32-36); Mean Corpuscular Hemoglobin 32.3 pg (26-34); Mean Corpuscular Volume 97.5 fl (80-100); Mean Platelet Volume 10.7 fl (7.4-10.4); Monocytes Absolute Auto 0.6 K/mm3 (0.1-0.6); Monocytes Percent Auto 13.1 % (2.6-8.5); Neutrophils Absolute Auto 1.7 K/mm3 (1.3-6.7); Neutrophils Percent Auto 37.3 % (45.5-73.1); Platelet Count Result 212 k/mm3 (150-375); Red Blood Count 4.34 M/mm3 (4.2-5.4); Red Cell Distribution Width 13.1 % (11.5-14.5); White Blood Count 4.5 K/mm3 (4.5-10.0)
[2024-06-23 12:32] LABS: Alanine Aminotransferase 48 U/L (6-35); Albumin Level 4.6 g/dL (3.5-5.1); Alkaline Phosphatase 85 U/L (38-126); Anion Gap 11 mmol/L (4-12); Aspartate Amino Transferase 69 U/L (14-36); Bilirubin,Total 0.4 mg/dL (0.2-1.3); Blood Urea Nitrogen 13 mg/dL (7-17); Calcium 9.2 mg/dL (8.4-10.2); Carbon Dioxide 25 mmol/L (22-30); Chloride 107 mmol/L (98-107); Cholesterol 209 mg/dL (0-200); Estimated Glomerular Filt Rate > 60; Glucose 80 mg/dL (65-110); HDL Direct 80 mg/dL; Potassium 4.3 mmol/L (3.4-5.0); Sodium 143 mmol/L (137-145); Triglycerides 193 mg/dL (<150)
[2024-06-23 12:43] LABS: LDL Cholesterol Direct 76 mg/dL
[2024-06-28 02:43] LABS: CA 15-3 5 U/mL (<32)
== END 2024-06-23 09:17 | disposition home or self-care (01) ==
LOC: ANHGOSHLAB 09:17
PROVIDERS: Internal Medicine Medical Oncology; PCP Nurse Practitioner Family; Visit Provider Nurse Practitioner Family
DX: C50.412 Malignant neoplasm of upper-outer quadrant of left female breast (principal); Z17.0 Estrogen receptor positive status [ER+]; Z85.3 Personal history of malignant neoplasm of breast; R74.8 Abnormal levels of other serum enzymes; I10 Essential (primary) hypertension; E78.00 Pure hypercholesterolemia, unspecified; E78.5 Hyperlipidemia, unspecified; Z00.00 Encounter for general adult medical examination without abnormal findings; Z13.29 Encounter for screening for other suspected endocrine disorder
CPT/HCPCS: 36415; 80053; 80061; 84443; 85025; 86300